=== PATIENT | female | born 1980 | race Caucasian/White ===

== ENCOUNTER 2019-10-29 00:16 | Outpatient (CLI) | payer OTHER, SELFPAY ==
[2019-10-29 16:10] LABS: SARS-CoV-2 RNA PCR Negative
== END 2019-10-29 00:17 | disposition home or self-care (01) ==
LOC: ANHCOVIDDT 00:17
PROVIDERS: PCP Physician Assistant; Visit Provider Obstetrics & Gynecology
DX: Z01.818 Encounter for other preprocedural examination (principal); Z11.59 Encounter for screening for other viral diseases
CPT/HCPCS: 87635; C9803; U0003

== ENCOUNTER 2019-10-31 01:13 | Day surgery (SDC) | payer OTHER, SELFPAY ==
[2019-10-25 14:32] VITALS: BMI 34.8
[2019-10-31] MEDS: LACTATED RINGERS 1,000 ML 30 ML IV CONT (10:30)
--- NOTE | 2019-10-31 11:05 | WPDANESEPPF ---
Anes - Initial Pre Proc Eval Procedure: Operation Date: 10/31/19 12:00 Proposed Procedures p Hysteroscopy, Endometrial Ablation - Larry Mcdaniel MD Date/Time: 10/31/19 11:05 Surgeon: Larry Mcdaniel MD Pre Op Diagnosis: menometrohaghia Patient Data Age: 39 Gender: F Height: 5 ft 5 in Weight: 95 kg Allergies Allergy/AdvReac Type Severity Reaction Status Date / Time No Known Allergies Allergy Verified 10/31/19 10:55 Home Medications Medication Instructions Recorded Confirmed Type No Home Medications 10/25/19 10/31/19 History Patient hx anesthesia problems: none Family hx anesthesia problems: none PMFSH Family History Family History Other Diabetes mellitus Family history of malignant neoplasm Hypertension Social History Social History Smoking status: Never smoker Alcohol intake: current Gender identity (if verbalized by the patient): Female Anes - Eval Final PreProcedure Day of Procedure 10/31/19 11:05 Patient weight: obese Heart: regular rate and rhythm Lungs: clear to auscultation Airway: Mallampati scale class II Neurological: alert and oriented Last oral intake: >/= 8 hours ASA classification: II Emergent: no Anesthetic plan: proceed Anesthesia type and monitoring: general GIVS and standard monitoring Informed Consent: The patient's anesthetic plan and its attendant risks and benefits were discussed with the patient/family/POA. Questions were solicited and answers provided to the satisfaction of the patient/family/POA.
[2019-10-31 11:19] VITALS: BP 131/75; PULSE 67; RESP 18; TEMP 35.9; O2SAT 98
--- NOTE | 2019-10-31 11:23 | PM.IMHP ---
H&P: HPI History of Present Illness Chief complaint: menometrohaghia Narrative: Adamaris Kumar is a 39 year old female presents with complaints of heavy vaginal bleeding cramping and clotting. Cycles lasting 7-10 days with 3-5 days heavy. She has had hysteroscopy D&C which revealed no abnormalities. Has had a prior tubal ligation. We discussed multiple options and she does desire to proceed with endometrial ablation. Review of Systems Review of Systems: All systems reviewed & are unremarkable except as noted in HPI and below PMFSH Family History Family History Other Diabetes mellitus Family history of malignant neoplasm Hypertension Social History Social History Smoking status: Never smoker Alcohol intake: current Gender identity (if verbalized by the patient): Female Meds Home Medications and Allergies Home Medications Medication Instructions Recorded Confirmed Type No Home Medications 10/25/19 10/31/19 History Allergies Allergy/AdvReac Type Severity Reaction Status Date / Time No Known Allergies Allergy Verified 10/31/19 10:55 Vital Signs Vital Signs - 24 hr 10/31/19 11:19 Temperature 35.9 C L Pulse Rate 67 Respiratory Rate 18 Blood Pressure 131/75 Pulse Oximetry 98 Exam Const: General: no acute distress Resp: Auscultation: clear to auscultation bilaterally Cardio: Rate: regular rate Rhythm: regular rhythm GI: GI Palp: Yes Soft to palpation : Other: Uterus mildly enlarged. Nontender. Assessment and Plan Assessment and plan (1) Menometrorrhagia: Code(s): N92.1 - Excessive and frequent menstruation with irregular cycle Status: Acute Additional Plan 0 proceed with endometrial ablation.
[2019-10-31] MEDS: ceFAZolin 2 GM/D5W 50 ML 2 GM/50 ML BAG IVPB (12:16)
[2019-10-31] MEDS: KETOROLAC 30 MG/ML VIAL (*BKC) IV PUSH (12:44)
--- NOTE | 2019-10-31 12:52 | PM.OP ---
Procedure Note - Brief Procedure Note - Brief Date of procedure: 10/31/19 Pre-op diagnosis: menometrohaghia Post-op diagnosis: same (+endometrial polyp) Procedure performed: 1. Hysteroscopy 2. Polypectomy 3. Min nerve endometrial ablation Description of procedure: Patient was prepped in usual manner for this procedure cervix was dilated the hysteroscope to be placed. Polyp was noted and rhythm removed a polyp forceps. Manner instrument was placed activated and at the end of the procedure hysteroscopic exam was performed which did reveal good thorough destruction throughout. This point procedure was considered terminated. Anesthesia: GLMA Surgeon: Larry Mcdaniel MD Estimated blood loss (mL): 10 Drains: No Packing: No Pathology: yes Complications: No immediate complications Condition: stable Disposition: PACU Findings: Endometrial polyp
[2019-10-31 12:53] VITALS: BP 120/71; PULSE 72; RESP 12; O2SAT 96
[2019-10-31 13:15] VITALS: BP 112/70; PULSE 70; RESP 12
[2019-10-31 13:45] VITALS: BP 138/71; PULSE 54; RESP 12
== END 2019-10-31 14:08 | disposition home or self-care (01) ==
PROVIDERS: PCP Physician Assistant; Visit Provider Obstetrics & Gynecology
PROC: 0U5B8ZZ Destruction of Endometrium, Via Natural or Artificial Opening Endoscopic (ICD-10-PCS; CPT 58563; principal; 2019-10-31 12:00)
DX: N92.1 Excessive and frequent menstruation with irregular cycle (principal); N84.0 Polyp of corpus uteri; E66.9 Obesity, unspecified; Z68.36 Body mass index [BMI] 36.0-36.9, adult
CPT/HCPCS: 58563; 88305; A9270; J0131; J0690; J1885; J2250; J2405; J2704; J3010; J7030; J7120

== ENCOUNTER 2021-10-12 17:45 | Emergency (ER) | payer OTHER, SELFPAY ==
[2021-10-12 17:55] VITALS: BP 128/67; PULSE 77; RESP 16; TEMP 37.4; O2SAT 99
--- NOTE | 2021-10-12 17:58 | ED.EAR ---
HPI - Ear Problem General Chief complaint: Ear Stated complaint: Left ear pain Time Seen by Provider: 10/12/21 17:58 Source: patient, RN notes reviewed and old records reviewed Mode of arrival: ambulatory Limitations: no limitations History of Present Illness HPI Narrative: 41-year-old female presents to the [facility] with complaints of left ear pain and decreased hearing. Reports that start sinus issue. No treatment prior to arrival. MD Complaint: ear pain and decreased hearing Location: left ear Related Data Allergies Allergy/AdvReac Type Severity Reaction Status Date / Time No Known Allergies Allergy Verified 10/12/21 17:46 Review of Systems Review of Systems: All systems reviewed & are unremarkable except as noted in HPI and below Constitutional: Constitutional: Reports no additional constitutional complaints, Denies chills and Denies fever(s) Eyes: Eyes: Reports no additional eye complaints ENT: Reports as per HPI, Denies change in voice, Denies dental pain, Denies vertigo, Denies dizziness and Denies throat swelling Comments: Ear pain, left Cardiovascular: Cardiovascular: Reports no additional cardiovascular complaints, Denies chest pain and Denies dyspnea Respiratory: Respiratory: Reports no additional respiratory complaints, Denies cough and Denies dyspnea Gastrointestinal: Gastrointestinal: Reports no additional gastrointestinal complaints, Denies abdominal pain, Denies nausea and Denies vomiting Musculoskeletal: Musculoskeletal: Reports no additional musculoskeletal complaints Integumentary/Breasts: Skin/Breast: Reports system reviewed and no additional complaints, except as docu Neurologic: Reports system reviewed and no additional complaints, except as documented, Denies vertigo and Denies dizziness Psychiatric: Psychiatric: Reports no additional psychiatric complaints Allergic/Immunologic: Allergic/Immunologic: Reports no additional allergic/immunologic complaints and Denies throat swelling PMFSH Family History Family History Other Diabetes mellitus Family history of malignant neoplasm Hypertension Social History Social History Smoking status: Never smoker Alcohol intake: current Gender identity (if verbalized by the patient): Female Comments At the time of my signature, I reviewed and agree with the nursing past medical, surgical, social, and family history. There is no relevant family history pertinent to the patient complaint. Exam Const: General: healthy appearing and no acute distress Nutritional Appearance: well nourished and obese Orientation/consciousness: patient oriented x3 Limitations: no limitations HENMT: Head: normal to inspection Ears: external ears normal, EAC's normal and TM abnormal with fluid behind the TM on the left and scarred bilateral; not erythematous and with no loss of landmarks General nose exam: Normal external nose present and Normal nasal mucous membranes and turbinates present Face and sinus: normal facial exam Mouth: Yes Normal oral and palatal mucosa present Throat: posterior oropharynx normal, tonsils normal and uvula midline Eyes: Conjunctivae: conjunctivae normal Pupils: Equal, round and reactive pupils present Neck: Neck: normal visual inspection, no lymphadenopathy and no meningeal signs Chest: Chest palpation & inspection: normal inspection of the chest Resp: Effort & Inspection: normal respiratory effort and no use of accessory muscles Auscultation: clear to auscultation bilaterally, no crackles, no rales, no rhonchi and no wheezes Cardio: Rate: regular rate Rhythm: regular rhythm Back/Spine/Pelvis: Back: no CVA tenderness Skin: General skin exam: normal color Rashes: no rashes Wounds: no wounds Neuro: General: patient oriented x3, gait normal, moves all extremities, no meningeal signs and no focal motor deficits Cranial
== END 2021-10-12 18:10 | disposition home or self-care (01) ==
PROVIDERS: Emergency Provider Nurse Practitioner; PCP Physician Assistant
DX: H65.02 Acute serous otitis media, left ear (principal)
CPT/HCPCS: 99211; G0463

== ENCOUNTER 2022-01-01 02:40 | Day surgery (SDC) | payer OTHER, SELFPAY ==
[2021-12-24 11:54] VITALS: BMI 41.8
--- NOTE | 2022-01-01 07:46 | WPDANESEPPF ---
Anes - Initial Pre Proc Eval Procedure: Operation Date: 01/01/22 09:45 Proposed Procedures p Colonoscopy - Guicho Wadsworth MD Date/Time: 01/01/22 07:46 Surgeon: Guicho Wadsworth MD Pre Op Diagnosis: occult GI bleed Patient Data Age: 41 Gender: F Height: 1.65 m Weight: 114 kg Allergies Allergy/AdvReac Type Severity Reaction Status Date / Time No Known Allergies Allergy Verified 01/01/22 08:52 Home Medications Medication Instructions Recorded Confirmed Type No Home Medications 11/30/21 12/24/21 History Patient hx anesthesia problems: none Family hx anesthesia problems: none Results Review: All pre-operative results and documents have been reviewed as part of the pre-operative evaluation. [facility] Past Medical History Medical History (Updated 01/01/22 @ 07:46 by Juancarlos Chiu MD) ADHD (~2006) Anemia Anxiety Diverticulitis Encounter for IUD insertion 10/16/08 Mirena insertion 12/26/13 Mirena removal/reinsertion Encounter for IUD removal 12/26/13 Mirena removal/reinsertion 04/20/16 Mirena removal Gestational hypertension Miscarriage (~2004) Morbid obesity with BMI of 40.0-44.9, adult Normal result of biopsy of kidney 2008 2010 Surgical History Surgical History History of 03/06/03 primary c/s--twins/preeclampsia/toxemia/blood loss during c/s 02/13/08 rpt c/s lysis of adhesions 02/21/18 rpt c/s w/tubal ligation History of dilation and curettage 06/06/04 suction d&c--miscarriage 08/16/19 hscope d&c History of endometrial ablation (10/31/19) History of placement of ear tubes History of tubal ligation (02/21/18) Family History Family History Father Diabetes mellitus Hypertension Grandparent Heart disease maternal grandmother Cerebrovascular accident maternal grandfather Breast cancer paternal grandmother Other Family history of malignant neoplasm Social History Social History (Updated 11/30/21 @ 10:24 by DERRICK Powers) Smoking status: Never smoker Alcohol intake: never Substance use: current Substance use type: marijuana Other substance usage details: daily Last use: daily Living arrangements: with family Additional occupation/education comments: teacher Gender identity (if verbalized by the patient): Female Sexual Orientation (if Verbalized by the Patient): Straight or Heterosexual Spiritual care concerns: No Anes - Eval Final PreProcedure Day of Procedure 01/01/22 07:46 Patient weight: morbidly obese Heart: regular rate and rhythm Lungs: clear to auscultation Airway: Mallampati scale class II Neurological: alert and oriented Last oral intake: >/= 8 hours ASA classification: III Emergent: no Anesthetic plan: proceed Anesthesia type and monitoring: general GIVS and standard monitoring Results Review: All pre-operative results and documents have been reviewed as part of the pre-operative evaluation. Informed Consent: The patient's anesthetic plan and its attendant risks and benefits were discussed with the patient/family/POA. Questions were solicited and answers provided to the satisfaction of the patient/family/POA.
[2022-01-01 08:53] VITALS: BP 139/72; PULSE 90; RESP 18; TEMP 36.1; O2SAT 99
[2022-01-01] MEDS: LACTATED RINGERS 1,000 ML 150 ML IV CONT (09:09)
--- NOTE | 2022-01-01 09:42 | WPDGICN ---
Assessment and Plan Assessment and plan (1) Rectal bleeding: Code(s): K62.5 - Hemorrhage of anus and rectum Status: Acute Assessment and Plan: Patient reports off and on rectal bleeding has occurred off and on over last several years. Most suspicious for hemorrhoidal bleeding. Described as bright red blood per rectum plan is for colonoscopy to assess more thoroughly. (2) Diarrhea: Code(s): R19.7 - Diarrhea, unspecified Status: Acute Assessment and Plan: Patient complains of abdominal pain and diarrhea shortly after eating consistent with possible IBS. Plan is to add fiber supplementation such as FiberCon 2 tabs p.o. b.i.d. colonoscopy will be performed to evaluate more thoroughly. (3) History of diverticulitis: Code(s): Z87.19 - Personal history of other diseases of the digestive system Status: Acute Assessment and Plan: Patient has been diagnosed with diverticulitis in the past. Currently avoiding seeds and nuts although this may be of no clinical in prove min. Not a definite recommendation recently. Plan is for high-fiber diet colonoscopy will be obtained because of intermittent change in bowel habits since recent episode of diverticulitis. High-fiber diet advised at this time. GI Consult Note Consult date/time: 01/01/22 09:42 Reason for consult: Rectal bleeding. HPI: Adamaris Kumar is a 41 year old female Referred by primary care because of occult blood in stool . Patient reports never having had a stool sample. She reports problems began after diverticulitis episode 4 years ago. She was treated with antibiotics. Since then she has urgent bowel movement shortly after eating. Has intermittent bright red blood per rectum. She has avoided seeds and nuts because of her episode of diverticulitis. Family history is noncontributory. Patient denies any weight loss. She has ongoing intermittent bright red blood per rectum with bowel movements and is referred for further evaluation. Family history is noncontributory. Review of Systems Review of Systems: Review of systems noncontributory. [facility] Past Medical History Medical History (Updated 01/01/22 @ 09:45 by Guicho Wadsworth MD) ADHD (~2006) Anemia Anxiety Diverticulitis Encounter for IUD insertion 10/16/08 Mirena insertion 12/26/13 Mirena removal/reinsertion Encounter for IUD removal 12/26/13 Mirena removal/reinsertion 04/20/16 Mirena removal Gestational hypertension Miscarriage (~2004) Morbid obesity with BMI of 40.0-44.9, adult Normal result of biopsy of kidney 2008 2010 Surgical History Surgical History History of 03/06/03 primary c/s--twins/preeclampsia/toxemia/blood loss during c/s 02/13/08 rpt c/s lysis of adhesions 02/21/18 rpt c/s w/tubal ligation History of dilation and curettage 06/06/04 suction d&c--miscarriage 08/16/19 hscope d&c History of endometrial ablation (10/31/19) History of placement of ear tubes History of tubal ligation (02/21/18) Family History Family History Father Diabetes mellitus Hypertension Grandparent Heart disease maternal grandmother Cerebrovascular accident maternal grandfather Breast cancer paternal grandmother Other Family history of malignant neoplasm Social History Social History (Updated 11/30/21 @ 10:24 by Mirta Jesus RMGregory) Smoking status: Never smoker Alcohol intake: never Substance use: current Substance use type: marijuana Other substance usage details: daily Last use: daily Living arrangements: with family Additional occupation/education comments: teacher Gender identity (if verbalized by the patient): Female Sexual Orientation (if Verbalized by the Patient): Straight or Heterosexual Spiritual care concerns: No Meds Home Medications and Jesús
[2022-01-01 10:14] VITALS: BP 102/61; PULSE 82; RESP 20; O2SAT 100
[2022-01-01 10:24] VITALS: BP 104/57; PULSE 82; RESP 20; O2SAT 100
[2022-01-01 10:34] VITALS: BP 113/68; PULSE 59; RESP 22; O2SAT 100
== END 2022-01-01 10:44 | disposition home or self-care (01) ==
PROVIDERS: PCP Physician Assistant; Visit Provider Internal Medicine Gastroenterology
PROC: 0DJD8ZZ Inspection of Lower Intestinal Tract, Via Natural or Artificial Opening Endoscopic (ICD-10-PCS; CPT 45378; principal; 2022-01-01 09:45)
DX: K62.5 Hemorrhage of anus and rectum (principal); K63.5 Polyp of colon; K62.1 Rectal polyp; K64.8 Other hemorrhoids; K57.30 Diverticulosis of large intestine without perforation or abscess without bleeding; R19.7 Diarrhea, unspecified; Z87.19 Personal history of other diseases of the digestive system; F90.9 Attention-deficit hyperactivity disorder, unspecified type; D64.9 Anemia, unspecified; F41.9 Anxiety disorder, unspecified; F12.90 Cannabis use, unspecified, uncomplicated; E66.9 Obesity, unspecified; Z68.41 Body mass index [BMI] 40.0-44.9, adult
CPT/HCPCS: 45385; 88305; J2704; J7120

== ENCOUNTER 2022-04-16 08:02 | Outpatient (CLI) | payer OTHER, SELFPAY | END 2022-04-16 08:03 | disposition home or self-care (01) | LOC: ANHSURGERY 08:05 | PROVIDERS: PCP Physician Assistant; Visit Provider Obstetrics & Gynecology | DX: N85.2 Hypertrophy of uterus (principal); Z01.818 Encounter for other preprocedural examination | CPT/HCPCS: 36415; 86850; 86880; 86900; 86901; 86902 ==

== ENCOUNTER 2022-04-22 14:32 | Inpatient (IN) | payer OTHER, SELFPAY ==
[2022-04-14 13:42] VITALS: BMI 35.6
--- NOTE | 2022-04-14 13:46 | SUR.PREOP ---
Report to the Outpatient Waiting Room, entrance under the green pavilion located off [facility], at time _0600 on date _04/22/22 . Planned Procedure Time: _07 . Time changes happen often and if your time is changed the preop area will call you the afternoon before. - You and your visitor will be asked to self-screen and do not enter if you have any COVID symptoms. - We encourage only one visitor and NO visitors under age 16 are allowed at this time. Your visitor will receive communication by the phone number that is given day of service. - The patient visitor is requested to social distance or may leave the building when not with patient due to restrictions. - A mask is required within the hospital. Patients may have clear liquids (water, carbonated beverages, clear teas, apple juice) until 3 hours prior to surgery with a maximum of 20 ounces. - No food from midnight until time of surgery - Infants may have breast milk until 4 hours before surgery, formula 6 hours prior to surgery. - Children will be allowed to drink immediately following surgery. If applicable, please bring a bottle or sippy cup to assist with drinking. Juice, water, soda, and popsicles are readily available. For infants on formula, please bring formula the day of surgery. Pacifiers are allowed. Take the following medications with a SIP of water the morning of surgery: ____n/a Medications to discontinue per physician ___n/a Date to take last dose__n/a Please no make-up, nail bulgarian, hairspray, perfume, deodorant, or body powder the day of surgery. No jewelry (including any body piercings) or valuables the day of surgery, leave them at home. Please take a shower or bath the night before, or the morning of, surgery with an antibacterial soap. Wear comfortable, loose fitting clothing. Children are encouraged to wear pajamas. - Jewelry must be removed prior to entering the operating room. Rings and piercings that are not removed may be cut off. - The hospital will not accept responsibility for valuables. - Please leave all valuables, including medications, at home the day of surgery. If you are going home after surgery, a licensed bicycle taxi driver must drive you home. - NO public transportation without another adult. - We recommend that an adult stay with you for 24 hours following discharge. - We also recommend that you do not drive, make important decision, drink alcoholic beverages, or take any drugs that were not prescribed by your health care provider for at least 24 hours after your discharge time. For Pediatric surgeries, we recommend two adults accompany the child home. Follow any additional instructions given to you from your surgeon. If you or anyone in your household have experienced Covid symptoms in the past week, please notify your surgeon or the nurse liaison at the phone number below for possible testing. Telephone instructions given to lexx collier__and asked if any additional questions and then verbalized understanding. Patient advised to call surgeon office or pre surgery nurse liaison [phone] if any additional questions.
--- NOTE | 2022-04-20 16:55 | PM.IMHP ---
H&P: HPI History of Present Illness Date/Time: 04/20/22 16:55 41-year-old 3 para 3003 female presents for hysterectomy due to heavy vaginal bleeding. She underwent endometrial ablation in 2019 which worked nicely for her until the last 6 months or so, at which time she began to have heavy vaginal bleeding cramping clotting to the point where she is bleeding through clothes and interfering significantly in activities of daily living. She also has 3 previous deliveries and significant adhesions were noted on the operative for of her last delivery, therefore we will be proceeding with open procedure as opposed to laparoscopic. Recent ultrasound revealed enlarged uterus [id number]. We have discussed ovarian preservation and she does desire. Chief Complaint: Menometrorrhagia/failed endometrial ablation. Review of Systems Review of Systems: All systems reviewed & are unremarkable except as noted in HPI and below PMFSH Past Medical History Medical History ADHD (~2006) Anemia Anxiety Diverticulitis Encounter for IUD insertion 10/16/08 Mirena insertion 12/26/13 Mirena removal/reinsertion Encounter for IUD removal 12/26/13 Mirena removal/reinsertion 04/20/16 Mirena removal Gestational hypertension Miscarriage (~2004) Morbid obesity with BMI of 40.0-44.9, adult Normal result of biopsy of kidney 2008 2010 Surgical History Surgical History History of 03/06/03 primary c/s--twins/preeclampsia/toxemia/blood loss during c/s 02/13/08 rpt c/s lysis of adhesions 02/21/18 rpt c/s w/tubal ligation History of dilation and curettage 06/06/04 suction d&c--miscarriage 08/16/19 hscope d&c History of endometrial ablation (10/31/19) History of placement of ear tubes History of tubal ligation (02/21/18) Family History Family History Father Diabetes mellitus Hypertension Grandparent Heart disease maternal grandmother Cerebrovascular accident maternal grandfather Breast cancer paternal grandmother Other Family history of malignant neoplasm Social History Social History Smoking status: Never smoker Alcohol intake: never Substance use: current Substance use type: marijuana Other substance usage details: daily usage smoking for 12 years,anxiety Last use: daily Additional occupation/education comments: teacher Gender identity (if verbalized by the patient): Female Sexual Orientation (if Verbalized by the Patient): Straight or Heterosexual Spiritual care concerns: No Meds Home Medications and Allergies Home Medications Medication Instructions Recorded Confirmed Type No Home Medications 11/30/21 04/14/22 History Allergies Allergy/AdvReac Type Severity Reaction Status Date / Time No Known Allergies Allergy Verified 04/14/22 13:26 Exam Const: General: cooperative, healthy appearing and comfortable Resp: Effort & Inspection: normal respiratory effort Auscultation: clear to auscultation bilaterally Cardio: Rate: regular rate Rhythm: regular rhythm GI: Inspection: normal to inspection and incision Auscultation: normal bowel sounds : External Female Exam: normal external appearance Speculum Exam - Vagina: normal appearance of the vagina Speculum Exam - Cervix: normal appearance of the cervix Bimanual exam- vagina & uterus: enlarged ( 10-12 week size) Bimanual Exam- Adnexa, other: normal adnexae Assessment and Plan Assessment and plan (1) Menometrorrhagia: Code(s): N92.1 - Excessive and frequent menstruation with irregular cycle Status: Acute (2) Enlarged uterus: Code(s): N85.2 - Hypertrophy of uterus Status: Acute (3) Post endometrial ablation syndrome: Code(s
--- NOTE | 2022-04-21 12:57 | WPDANESEPPF ---
Anes - Initial Pre Proc Eval Procedure: Operation Date: 04/22/22 07:30 Proposed Procedures p Supracervical Abdominal Hysterectomy with Bilateral Salpingectomy - Larry Mcdaniel MD Date/Time: 04/21/22 12:57 Surgeon: Larry Mcdaniel MD Pre Op Diagnosis: uterine hypertrophy Patient Data Age: 41 Gender: F Height: 1.65 m Weight: 97.27 kg Allergies Allergy/AdvReac Type Severity Reaction Status Date / Time No Known Allergies Allergy Verified 04/22/22 07:37 Home Medications Medication Instructions Recorded Confirmed Type hydrocodone 5 mg-acetaminophen 325 1 tablet PO Q4-6H PRN Pain Rated 5 04/23/22 Rx mg tablet Or Less #30 tabs ibuprofen 600 mg tablet 600 mg PO Q6H PRN Cramping #30 tabs 04/23/22 Rx Patient hx anesthesia problems: none Family hx anesthesia problems: none Results Review: All pre-operative results and documents have been reviewed as part of the pre-operative evaluation. [facility] Past Medical History Medical History ADHD (~2006) Anemia Anxiety Diverticulitis Encounter for IUD insertion 10/16/08 Mirena insertion 12/26/13 Mirena removal/reinsertion Encounter for IUD removal 12/26/13 Mirena removal/reinsertion 04/20/16 Mirena removal Gestational hypertension Miscarriage (~2004) Morbid obesity with BMI of 40.0-44.9, adult Normal result of biopsy of kidney 2008 2010 Surgical History Surgical History History of 03/06/03 primary c/s--twins/preeclampsia/toxemia/blood loss during c/s 02/13/08 rpt c/s lysis of adhesions 02/21/18 rpt c/s w/tubal ligation History of dilation and curettage 06/06/04 suction d&c--miscarriage 08/16/19 hscope d&c History of endometrial ablation (10/31/19) History of placement of ear tubes History of tubal ligation (02/21/18) Family History Family History Father Diabetes mellitus Hypertension Grandparent Heart disease maternal grandmother Cerebrovascular accident maternal grandfather Breast cancer paternal grandmother Other Family history of malignant neoplasm Social History Social History Smoking status: Never smoker Alcohol intake: never Substance use: current Substance use type: marijuana Other substance usage details: daily usage smoking for 12 years,anxiety Last use: daily Living arrangements: with family Additional occupation/education comments: teacher Gender identity (if verbalized by the patient): Female Sexual Orientation (if Verbalized by the Patient): Straight or Heterosexual Spiritual care concerns: No Anes - Eval Final PreProcedure Day of Procedure 04/21/22 12:57 Patient weight: obese Heart: regular rate and rhythm Lungs: clear to auscultation Airway: Mallampati scale class II Neurological: alert and oriented Last oral intake: >/= 8 hours ASA classification: II Emergent: no Anesthetic plan: proceed Anesthesia type and monitoring: general ETT and standard monitoring Results Review: All pre-operative results and documents have been reviewed as part of the pre-operative evaluation. Informed Consent: The patient's anesthetic plan and its attendant risks and benefits were discussed with the patient/family/POA. Questions were solicited and answers provided to the satisfaction of the patient/family/POA.
[2022-04-22] VITALS (21 sets, daily range): BP systolic 97–127; BP diastolic 55–83; PULSE 50–109; RESP 10–20; TEMP 36.2–37.2; O2SAT 93–100
[2022-04-22] MEDS: ACETAMINOPHEN 500 MG TABLET 1000 MG PO (06:35)
[2022-04-22] MEDS: KETOROLAC 15 MG/ML VIAL (*BKC) IV PUSH (06:43)
[2022-04-22] MEDS: LACTATED RINGERS 1,000 ML 30 ML IV CONT ×3 (06:44→11:29)
--- NOTE | 2022-04-22 07:08 | WPDHPUPDATE1 ---
History and Physical Update Update Date/Time: 04/22/22 07:08 History and Physical has been reviewed, including an updated exam of the patient. There are NO changes in the patient's condition. Risks, benefits, and alternatives have been discussed and questions answered. Patient agrees to proceed with procedure.
[2022-04-22] MEDS: ceFAZolin 2 GM/D5W 50 ML 2 GM/50 ML BAG IVPB (07:22)
--- NOTE | 2022-04-22 09:13 | W.PM.PROC2 ---
Procedure Note - Detailed Date of Procedure 04/22/22 Pre-op Diagnosis 1. Menometrorrhagia 2. Enlarged uterus 3. Post endometrial ablation syndrome Post-op Diagnosis Same (4. Adhesions) Procedure Performed 1. Supracervical abdominal hysterectomy 2. Bilateral salpingectomy Surgeon Larry Mcdaniel MD Anesthesia General Findings 1. Enlarged uterus 2. Ovaries without abnormality 3. Omental and bladder adhesions. Description of Procedure Patient prepped draped usual manner for this procedure. Pfannenstiel incision was made and carried down to the fascia and extended bilaterally the length of the skin incision. Entry of the peritoneum was difficult due to adhesions of the omentum and bowel to the anterior abdominal wall. Once wheeze were sharply and bluntly taken down the uterus was identified with tubes and ovaries noted as well. Again dense adhesions of bowel and bladder to the anterior portion of the uterus from the midportion of the uterus down through the cervix. These were again sharply and bluntly taken down without damage to the remaining tissue. Once normal anatomy had been restored as much as possible, the round ligaments were doubly ligated and the round ligament was incised and the bladder flap was developed as best possible. Posterior leaf the broad ligament was also incised to allow the uterine vessels to be identified. Uterine ovarian ligament were clamped cut and tied to release the ovary out of the operative field. Also with this time the remaining tubal segments were removed without difficulty. Uterine vessels then skeletonized clamped cut and tied hemostasis achieved. Dense adhesions were noted to the anterior portion the cervix and at this point the decision was made to perform the hysterectomy supracervically. The uterus was amputated at the level of the cervix and the cervix was then closed in a running interlocking manner with good approximation hemostasis noted of the cervical stump. Small oozing areas were cauterized and there was no active bleeding. Ziyad was placed empirically due to the you oozing from adhesion sites. All subfascial tissue was monitored at length to be certain there was no more bleeding and once this was determined the fascia was then closed using 0 Vicryl from a left angle to the midline and right angle to midline with good approximation hemostasis noted. Subcutaneous tissue was approximated 0 plain suture and 4-0 Monocryl was then used to approximate the skin edges. Patient was then sent to the recovery room in stable condition. Estimated Blood Loss -100.0 Urine Output -450.0 Drains No Packing No Pathology Yes Complications No immediate complications Condition Stable Disposition PACU [facility] Billing Surgery - Charge Forward: Surgery Billing
[2022-04-22] MEDS: fentaNYL CITRATE INJ (*CRX) 100 MCG/2 ML VIAL 25 MCG IV PUSH ×8 (09:29→13:37)
[2022-04-22] MEDS: HYDROmorphone HCL INJ (*CRX) 1 MG/ML SYR 0.5 MG IV PUSH ×4 (10:10→12:53)
[2022-04-22] MEDS: ONDANSETRON INJ 4 MG/2 ML VIAL IV PUSH (11:24)
--- NOTE | 2022-04-22 12:36 | SUR.PHASEI ---
1230 pt is ready to transfer to floor meets anesthesia protocol for transfer, waiting for bed in ob unit
[2022-04-22] MEDS: HYDROcodone/acetaminophen (*CRX) 5-325 MG TABLET 1 TAB PO ×2 (13:45→21:00)
--- NOTE | 2022-04-22 14:45 | OBPPTRN ---
Patient transferred to post room #290 via stretcher. Support person present. Oriented to unit, room, information board, call light within reach Patient verbalizes understanding.
[2022-04-22] MEDS: DEXTROSE 5%/LACTATED RINGERS 1,000 ML 125 ML IV CONT (15:07)
[2022-04-22] MEDS: KETOROLAC 30 MG/ML VIAL (*BKC) IV PUSH (15:09)
[2022-04-22] MEDS: IBUPROFEN 600 MG TABLET PO (21:00)
[2022-04-23 05:00] VITALS: BP 105/62; PULSE 97; RESP 16; TEMP 37
[2022-04-23] MEDS: IBUPROFEN 600 MG TABLET PO ×2 (05:16→13:55)
[2022-04-23] MEDS: HYDROcodone/acetaminophen (*CRX) 5-325 MG TABLET 1 TAB PO ×3 (05:17→13:55)
[2022-04-23 06:13] LABS: Basophils Percent Auto 0.2 % (0.2-1.2); Eosinophils Absolute Auto 0.1 K/mm3 (0-0.3); Eosinophils Percent Auto 0.9 % (0-4.4); Hematocrit 34.9 % (37.0-47.0); Hemoglobin 11.6 g/dL (12.0-15.0); Immature Granulocyte Absolute 0.03 K/mm3 (0.00-0.031); Immature Granulocyte Percent A 0.3 % (0-0.5); Lymphocytes Absolute Auto 1.18 K/mm3 (0.9-3.2); Lymphocytes Percent Auto 10.5 % (18.3-44.2); Mean Corpuscular HGB Conc 33.2 g/dl (32-36); Mean Corpuscular Hemoglobin 28.9 pg (26-34); Mean Platelet Volume 10.5 fl (7.4-10.4); Monocytes Absolute Auto 0.9 K/mm3 (0.1-0.6); Neutrophils Percent Auto 80.1 % (45.5-73.1); Platelet Count Result 220 k/mm3 (150-375); Red Blood Count 4.01 M/mm3 (4.2-5.4); Red Cell Distribution Width 12.6 % (11.5-14.5); White Blood Count 11.3 K/mm3 (4.5-10.0)
--- NOTE | 2022-04-23 07:49 | WPDANESPN ---
Anes - Prog Note Post-Op Date/Time: 04/23/22 07:49 Cardiovascular status: normal Respiratory status: normal Airway patency: baseline Mental status: baseline Post-Op hydration status: normal Vital Signs: Last Vital Signs Temp 37.0 C 04/23/22 05:00 Pulse 97 04/23/22 05:00 Resp 16 04/23/22 05:00 BP 105/62 04/23/22 05:00 Pulse Ox 100 04/22/22 14:50 O2 Del Method Room Air 04/22/22 14:45 O2 Flow Rate 2 04/22/22 14:15 Pain Score (VAS): 07/16 I/O: Intake & Output 04/22/22 04/22/22 04/23/22 15:59 23:59 07:59 Intake Total 2500 1540 Output Total 170 2250 1200 Balance 2417 -980 -6087 Laboratory Tests 04/23/22 05:07 04/16/22 04/23/22 08:11 05:07 WBC 11.3 H RBC 4.01 L Hgb 11.6 L Hct 34.9 L MCV 87.0 MCH 28.9 MCHC 33.2 RDW 12.6 Plt Count 220 MPV 10.5 H Immature Gran % (Auto) 0.3 Neut % (Auto) 80.1 H Lymph % (Auto) 10.5 L Mercer % (Auto) 8.0 Eos % (Auto) 0.9 Baso % (Auto) 0.2 Lymph # (Auto) 1.18 Mercer # (Auto) 0.9 H Eos # (Auto) 0.1 Baso # (Auto) 0.0 Abs Immat Gran (auto) 0.03 Absolute Neuts (auto) 9.0 H Absolute Nucleated RBC 0.0 Nucleated RBC % 0.0 Blood Type TNP Antibody Screen TNP Enhanced Crossmatch See Detail Post-procedural complaints: none Patient Feedback: Patient satisfied with anesthetic care.
[2022-04-23] MEDS: ONDANSETRON INJ 4 MG/2 ML VIAL IV PUSH (08:26)
[2022-04-23 08:35] VITALS: BP 115/64; PULSE 82; RESP 18; TEMP 36.8; O2SAT 98
[2022-04-23] MEDS: SIMETHICONE 80 MG TAB.CHEW PO ×2 (09:56→13:56)
[2022-04-23 15:30] VITALS: BP 125/68; PULSE 99; RESP 16; TEMP 36.6; O2SAT 97
[2022-04-23 18:50] VITALS: BP 101/61; PULSE 95; RESP 16; TEMP 36.8
[2022-04-24] MEDS: IBUPROFEN 600 MG TABLET PO (02:50)
[2022-04-24 07:45] VITALS: BP 107/72; PULSE 78; RESP 18; TEMP 36.6; O2SAT 100
--- NOTE | 2022-04-28 11:23 | PM.DS ---
DS: Admitting Diagnosis Discharge Date 04/24/22 Admitting Diagnosis menometrorrhagia DS: Summary Hospital Course Hospital Course: 42-year-old female underwent supracervical abdominal hysterectomy on 04/22. Postoperatively she progressed as expected with normal diet ambulation and on oral pain medications by time of discharge. Time Spent with Patient Time attestation: Total time spent providing and/or coordinating discharge services: Time spent: Less than 30 minutes Exam GI: Inspection: other ( Incision clean dry and intact) DS: Data Data Completed and Pending Completed studies during hospitalization: Pending at discharge 04/22/22 08:25 Surgical [PTH] Routine Discharge Plan Discharge Discharging Clinician: Larry Mcdaniel Patient Disposition: Home, Self-Care Activity: as tolerated Diet: as tolerated Wound Care Instructions: incision open to air Patient Instructions: Antibiotic Form, Hysterectomy (DC) Stand Alone Forms: General Discharge Information Follow-up/Referrals: Larry Mcdaniel MD [Physician] - 6 Weeks Discharge Medications: New hydrocodone-acetaminophen 5-325 mg Tablet 1 tablet PO Q4-6H PRN (Reason: Pain Rated 5 Or Less) Qty: 30 0RF ibuprofen 600 mg Tablet 600 mg PO Q6H PRN (Reason: Cramping) Qty: 30 0RF Date of admission: 04/22/22 14:32 Primary Care Provider: GiancarloMeaghan Admitting Provider: Larry Mcdaniel Attending physician on admission: Larry Mcdaniel Condition: Stable
--- NOTE | 2022-05-02 07:37 | PM.OBDSVD ---
DS: Admitting Diagnosis Discharge Date 04/24/22 Admitting Diagnosis Menometrorrhagia OB - DS: Summary Hospital Course Hospital Course: 42-year-old female underwent supracervical abdominal hysterectomy without issue. Postop day 2 was ambulating voiding tolerating regular diet and on oral pain medication and was discharged home to follow-up in the office in 3 weeks. OB Procedures : Other OB Procedures Intrapartum: Other OB Procedures: : Other Peripartum Data Procedures: Procedures Operation Date: 04/22/22 07:30 Actual Procedure Side Surgeon p Supracervical Abdominal Hysterectomy with Bilateral Salpingectomy Bilateral Larry Mcdaniel MD Time Spent with Patient Time attestation: Total time spent providing and/or coordinating discharge services: DS: Data Data Completed and Pending Completed studies during hospitalization: Pending at discharge 04/22/22 08:25 Surgical [PTH] Routine Discharge Plan Discharge Discharging Clinician: Larry Mcdaniel Patient Disposition: Home, Self-Care Activity: as tolerated Diet: as tolerated Wound Care Instructions: incision open to air Patient Instructions: Antibiotic Form, Hysterectomy (DC) Stand Alone Forms: General Discharge Information Follow-up/Referrals: Larry Mcdaniel MD [Physician] - 6 Weeks Discharge Medications: New hydrocodone-acetaminophen 5-325 mg Tablet 1 tablet PO Q4-6H PRN (Reason: Pain Rated 5 Or Less) Qty: 30 0RF ibuprofen 600 mg Tablet 600 mg PO Q6H PRN (Reason: Cramping) Qty: 30 0RF Date of admission: 04/22/22 14:32 Primary Care Provider: GiancarloMeaghan Admitting Provider: Larry Mcdaniel Attending physician on admission: Larry Mcdaniel Condition: Stable
== END 2022-04-24 10:00 | disposition home or self-care (01) | DRG 743 ==
LOC: ANHSURGERY 14:46 → ANHOB2 14:46
PROVIDERS: Admitting Provider Obstetrics & Gynecology; PCP Physician Assistant; Visit Provider Obstetrics & Gynecology
PROC: 0UT94ZZ Resection of Uterus, Percutaneous Endoscopic Approach (ICD-10-PCS; principal; 2022-04-22 07:30)
DX: N92.1 Excessive and frequent menstruation with irregular cycle (principal); N85.2 Hypertrophy of uterus; N99.85 Post endometrial ablation syndrome; Z28.21 Immunization not carried out because of patient refusal; N32.89 Other specified disorders of bladder; N73.6 Female pelvic peritoneal adhesions (postinfective)
CPT/HCPCS: 36415; 85025; 86900; 86901; 86922; 88307; A9270; J0690; J1100; J1170; J1885; J2250; J2405; J2590; J2704; J2710; J3010; J7120; J7121

== ENCOUNTER 2023-12-15 09:23 | Outpatient (CLI) | payer OTHER, SELFPAY ==
--- NOTE | ~2023-12-15 | XR_ITS ---
AP and lateral views of the right hip Clinical history: Pain Findings: No acute fracture or dislocation is seen. Osseous alignment is anatomic. Bilateral hip and SI joint spaces are preserved. Soft tissues are unremarkable. Impression: No significant abnormality is seen. Reviewed, dictated and finalized at location . Impression: No significant abnormality is seen.
--- NOTE | ~2023-12-15 | XR_ITS ---
Lumbosacral Spine: AP and lateral views Clinical History: Pain Findings: The normal lordotic curve is maintained. The vertebral bodies and posterior elements are i ntact. There is advanced degenerative disc narrowing at L5-S1. There is mild to moderate facet arthro venkatesh at L4-L5 and L5-S1. The sacroiliac joints are normally outlined. Impression: [id number] degenerative spondylosis at the lower lumbar spine, as detailed above. Reviewed, dictated and finalized at location M. Impression: [id number] degenerative spondylosis at the lower lumbar spine, as detaile d above.
== END 2023-12-15 09:24 | disposition home or self-care (01) ==
PROVIDERS: PCP Physician Assistant; Visit Provider Physician Assistant
DX: M25.551 Pain in right hip (principal); M47.26 Other spondylosis with radiculopathy, lumbar region
CPT/HCPCS: 72100; 73502

== ENCOUNTER 2024-03-01 15:59 | Outpatient (CLI) | payer OTHER, SELFPAY ==
--- NOTE | ~2024-03-01 | MM_ITS ---
EXAMINATION: MM screening catrina BI w cristobal HISTORY: Screening TECHNIQUE: Craniocaudal and mediolateral oblique 3-D tomosynthesis images were obtained and synthetic 2-D images were generated. CAD analysis was submitted and interpreted. COMPARISON: No prior mammogram is available for comparison at this institution. BREAST PARENCHYMAL COMPOSITION: Not dense: There are scattered areas of fibroglandular density. FINDINGS: There is no evidence of suspicious mass, calcification, or architectural distortion to sugg est malignancy in either breast. There has been no suspicious interval change. IMPRESSION: 1. No mammographic evidence of malignancy. 2. Recommend routine screening mammography in one year. BI-RADS Category 1: Negative Reviewed, dictated and finalized at location B.
== END 2024-03-01 16:00 | disposition home or self-care (01) ==
LOC: ANHIMG 15:59
PROVIDERS: PCP Physician Assistant; Visit Provider Physician Assistant
DX: Z12.31 Encounter for screening mammogram for malignant neoplasm of breast (principal)
CPT/HCPCS: 77063; 77067

== ENCOUNTER 2024-11-28 07:36 | Outpatient (CLI) | payer OTHER, SELFPAY ==
--- NOTE | ~2024-11-28 | CT_ITS ---
CT soft tissue neck w con Ordering provider: Meaghan Hernandez, ANGELIC History: 44 years Female with . LOCALIZED SWELLING OF NECK 75 ml CONTRAST GIVEN. BB IN PLACE . Comparison: None. Technique: CT soft tissues neck was performed with contrast. . Automated exposure control and iterat pastora reconstruction technique were employed. The dose-length product was 571.78 mGy-cm. 75 mL Omnipaqu e 350 was given IV. Findings: LOWER HEAD: The visualized brain parenchyma, optic globes/orbits and mastoids are normal. The visua lized paranasal sinuses are well aerated. SALIVARY GLANDS: Normal. THYROID: Normal. SUPRAHYOID DEEP SPACES: Normal. CAROTID ARTERIES: Normal. JUGULAR VEINS: Normal. TONSILS: Normal. ORAL CAVITY: normal as visualized. PHARYNX, LARYNX AND TRACHEA: Patent and normal. No prevertebral soft tissue swelling. SUPERFICIAL SOFT TISSUES: Normal. No lymphadenopathy or neck mass. THORACIC INLET/VISUALIZED UPPER CHEST: Normal. SKELETAL: Age appropriate degenerative changes. IMPRESSION: 1. No definite soft tissue abnormality seen. Reviewed, dictated and finalized at location A.
== END 2024-11-28 07:37 | disposition home or self-care (01) ==
PROVIDERS: PCP Physician Assistant; Visit Provider Physician Assistant
DX: R22.1 Localized swelling, mass and lump, neck (principal)
CPT/HCPCS: 70491; Q9967

== ENCOUNTER 2025-04-22 14:53 | Outpatient (CLI) | payer OTHER, SELFPAY ==
--- NOTE | ~2025-04-22 | MM_ITS ---
EXAMINATION: MM screening catrina BI w cristobal HISTORY: Screening TECHNIQUE: Craniocaudal and mediolateral oblique 3-D tomosynthesis images were obtained and synthetic 2-D images were generated. CAD analysis was submitted and interpreted. COMPARISON: 03/01/2024 BREAST PARENCHYMAL COMPOSITION: Not Dense: The breasts are almost entirely fatty. FINDINGS: There is no evidence of suspicious mass, calcification, or architectural distortion to suggest malignancy in either breast. IMPRESSION: 1. No mammographic evidence of malignancy. 2. Recommend routine screening mammography in one year. BI-RADS Category 1: Negative Reviewed, dictated and finalized at location B. [employer]
== END 2025-04-22 14:54 | disposition home or self-care (01) ==
PROVIDERS: PCP Physician Assistant; Visit Provider Physician Assistant
DX: Z12.31 Encounter for screening mammogram for malignant neoplasm of breast (principal)
CPT/HCPCS: 77063; 77067